=== PATIENT | female | born 1980 | race Caucasian/White ===

== ENCOUNTER 2019-11-16 20:58 | Emergency (ER) | payer SELFPAY ==
[~2019-11-16] VITALS: Ht 157.5 cm; Wt 72.6 kg
[2019-11-16 21:17] VITALS: BP 109/74
[2019-11-16 22:07] VITALS: BP 109/74
== END 2019-11-16 22:07 | disposition home or self-care (01) ==
LOC: MED 20:58
DX: R21 Rash and other nonspecific skin eruption (principal); L29.9 Pruritus, unspecified
CPT/HCPCS: 99281

== ENCOUNTER 2020-11-16 14:44 | Observation (INO) | payer MEDICAID ==
[~2020-11-16] VITALS: Ht 157.5 cm; Wt 76.2 kg
--- NOTE | 2020-11-16 15:00 | NUR ---
Patient wheelchaired to bed 02
[2020-11-16 15:01] VITALS: BP 111/69
--- NOTE | 2020-11-16 15:09 | NUR ---
[employer] RN student at bedside accompanied by RN.
--- NOTE | 2020-11-16 15:09 | NUR ---
Dr. Becerra is evaluating patient at bedside.
--- NOTE | 2020-11-16 15:10 | NUR ---
40 y/o F BIB self from home with c/c generalized weakness and palpitations x 3 days. 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 patient states triggers of stress would cause fluttering chest discomfort. Patient A&Ox4, states no chest pain at this time; however, most recent episode to sternal; 07/31, squeezing/intermittent, non-radiating pain. Patient also reports palpitations and nausea, headache, dizziness - states room spinning. Patient denies any medications prior to arrival. BP 105/67, HR 59 strong/regular, RR even/unlabored.. Patient reports symptoms came on at random. size cutter in place. Pt placed into a gown. Bed locked in lowest position, side rails x 1, call light in reach. PMH: Arrthymias x 20 years ago; prescribed beta blockers however stopped taking them after 1 year Meds/Sx: Denies NKA
[2020-11-16] MEDS ORDERED: SCOPOLAMINE 1.5 MG/72 HR PATCH TD SCH (15:20)
[2020-11-16] MEDS ORDERED: ONDANSETRON 4 MG ODT PO ONE (15:20)
--- NOTE | 2020-11-16 15:55 | NUR ---
Lab at bedside.
[2020-11-16 16:08] LABS: BASOPHILS # (AUTO) 0.1 K/uL (0.00-0.22); BASOPHILS % (AUTO) 1.6 % (0.0-2.0); EOSINOPHILS # (AUTO) 0.2 K/uL (0-0.4); EOSINOPHILS % (AUTO) 3.9 % (0.0-4.0); HEMATOCRIT 34.5 % (36-48); HEMOGLOBIN 11.4 g/dL (12.0-16.0); LYMPHOCYTES # (AUTO) 2.2 K/uL (2.5-16.5); MEAN CORPUSCULAR HEMOGLOBIN 29 pg (27-31); MEAN CORPUSCULAR HGB CONC 33 g/dL (33-37); MEAN CORPUSCULAR VOLUME 88.2 fL (80-94); MONOCYTES # (AUTO) 0.5 K/uL (0.8-1.0); MONOCYTES % (AUTO) 8.7 % (1.7-9.3); NEUTROPHILS # (AUTO) 3.2 K/uL (1.8-7.7); NEUTROPHILS % (AUTO) 50.8 % (42.2-75.2); PLATELET COUNT (AUTO) 240 K/uL (140-450); RED BLOOD CELL COUNT(AUTO) 3.91 MIL/uL (4.20-5.40); RED CELL DISTRIBUTION WIDTH 12.8 % (11.6-13.7); WHITE BLOOD COUNT (AUTO) 6.3 K/uL (4.8-10.8)
[2020-11-16 16:26] LABS: ALBUMIN 3.6 g/dL (3.4-5.0); ANION GAP 13.5 (8-16); CARBON DIOXIDE 25.6 mmol/L (21-32); CREATININE 0.7 mg/dL (0.6-1.3); MAGNESIUM 1.8 mg/dL (1.8-2.4); POTASSIUM 4.1 mmol/L (3.5-5.1); TOTAL BILIRUBIN 0.3 mg/dL (0.0-1.0)
--- NOTE | 2020-11-16 16:45 | NUR ---
RAD at bedside
--- NOTE | 2020-11-16 17:09 | NUR ---
Patient assisted to restroom via wheelchair. Patient states she felt "a little dizzy" after medication.
--- NOTE | 2020-11-16 17:11 | NUR ---
Dr. Becerra is evaluating patient at bedside.
[2020-11-16] MEDS ORDERED: ATROPINE 0.5 MG/5 ML SYR IVP ONE (17:20)
--- NOTE | 2020-11-16 17:30 | NUR ---
Dr. Becerra made aware of stable vital signs; advised to administer Atropine IVP if patient is bradycardic <50 and symptomatic. Patient made aware of criteria for Atropine use. residential monitor remains in place; HR 62 strong/regular. Bed locked in lowest position, side rails x 1, call light in reach.
[2020-11-16] MEDS ORDERED: ATROPINE 1 MG/10 ML SYR IVP ONE (17:39)
--- NOTE | 2020-11-16 17:53 | NUR ---
Patient advised of status update regarding pending admission and Covid floyd swab. Patient states she does not want to be swabbed for Covid swab due to personal reasons; at this time requesting to see if she can hold off on Wednesday to speak with her PCP and be referred to a consulting software engineer. Charge nurse and supervisor tank house made aware.
--- NOTE | 2020-11-16 17:57 | NUR ---
ice platform supervisor at bedside with patient.
--- NOTE | 2020-11-16 18:05 | NUR ---
Patient states refusal for Covid floyd swab, however, wants to stay for cardiac monitoring. Patient on telephone speaking with mother at this time. Charge nurse and Dr. Becerra made aware of situation.
--- NOTE | 2020-11-16 18:47 | NUR ---
product inspection supervisor Karlene is at bedside to assist patient perform Covid floyd swab.
--- NOTE | 2020-11-16 18:55 | NUR ---
Cliff barrientos swab collected by warehouse supervisor 3rd shift and walked to lab.
[2020-11-16] MEDS ORDERED: HYDROcodone/APAP 5/325 MG 1 TAB TAB PO PRN (19:05)
[2020-11-16] MEDS ORDERED: MORPHINE SULFATE 2 MG/ML SYR IVP PRN (19:05)
--- NOTE | 2020-11-16 19:11 | NUR ---
RECIEVED REPORT FROM OSCAR HESTER FOR CONTINUITY OF CARE.
--- NOTE | 2020-11-16 19:11 | NUR ---
Report and transfer of care endorsed to OSCAR Anthony.
--- NOTE | 2020-11-16 19:51 | NUR ---
PT TAKEN TO RESTROOM VIA WHEELCHAIR. PT REMAINS STEADY UPON STANDING.
[2020-11-16] MEDS: NACL 0.9% 1,000 ML IV SCH (20:00)
--- NOTE | 2020-11-16 20:00 | NUR ---
RECEIVED REPORT FROM ALVA MOORE DAYSHIFT NURSE OVER THE PHONE, PT IS AOX4 SKIN INTACT WITH IV SITE 22G ON LEFT HAND. SHE WILL BRING UP PT VIA W/C.
--- NOTE | 2020-11-16 20:03 | NUR ---
Patient will be admitted to care of MD ROBERT. Admited to TELEMETRY. Will go to room 105B. Belongings list completed. Report to OSCAR CALLAWAY.
--- NOTE | 2020-11-16 20:11 | NUR ---
PT TAKEN TO TELE 105B VIA RABERDEEN WITH ALVA MOORE AND TEX EMT.
[2020-11-16 20:24] LABS: BARBITURATE, URINE NEGATIVE ng/ml (NEG <=200); BENZODIAZEPINE, URINE NEGATIVE ng/mL (NEG <=200); CANNABINOID, URINE NEGATIVE ng/mL (NEG <=50); COCAINE, URINE NEGATIVE ng/mL (NEG <=300); OPIATE, URINE NEGATIVE ng/mL (NEG <=2000); PHENCYCLIDINE SCREEN,URINE NEGATIVE ng/mL (NEG <=25)
--- NOTE | 2020-11-16 20:30 | NUR ---
PT ARRIVED VIA W/C TO ROOM 105, PT AMBULATED TO BED B WITH STANDBY ASSISTANCE. SHE IS AOX4 IV SITE ON LEFT HAND 20 GUAGE INTACT WITH NORMAL SALINE BAG HUNG. PT SAID SHE HAD A HEADACHE 4/10 AND ASKED ABOUT PAIN MEDICATION , BUT SAID SHE NEVER TAKES ANY PILLS OR DRUGS AND DECLINED THE PO/PRN NORCO FOR MODERATE PAIN. V/S FOLLOWS: T 98.2 P 54 R 18 B/P 99/40 02 98%. ALL FALLS PRECAUTIONS IN PLACE. MRSA SWAB AND ADMISSION QUESTIONS ANSWERED. PT ORIENTED TO ROOM, ALL REQUESTED NEEDS ATTENDED BY STAFF.
--- NOTE | 2020-11-16 21:00 | NUR ---
ROUNDS DONE, ALL REQUESTED NEEDS ATTENDED BY STAFF. PT SAID SHE STILL FELT HEADACHE , BUT DECLINED TO TAKE OFFERED NORCO. ALL FALLS PRECAUTIONS IN PLACE.
--- NOTE | 2020-11-16 22:30 | NUR ---
ROUNDS DONE, NO C/O VOICED BY PT, ALL ORDERED PRECAUTIONS IN PLACE. NORMAL SALINE RUNNING AT 100MLS/HR ORDERED.
--- NOTE | 2020-11-17 00:30 | NUR ---
PT STANDBY ASSISTANCE TO BATHROOM; PT HR WAS 45 ON TELE , SHE HAS NO C/O VOICED, PT STANDBY ASSIST TO TOILET HAD NO C/O OF DIZZINESS. V/S FOLLOWS: T 97.9 P 51 R 18 B/P 90/42 02 99% ON ROOM AIR. PT GIVEN REQUESTED SNACK ALL FALLS PRECAUTIONS IN PLACE.
[2020-11-17 00:35] VITALS: BP 99/40
--- NOTE | 2020-11-17 02:00 | NUR ---
PT IN BED ASLEEP SHE HAS 22G IV SITE INTACT AND RUNNING NORMAL AT 100 MLS/HR. ALL ORDERED PRECAUTIONS IN PLACE.
[2020-11-17 04:00] VITALS: BP 93/65
[2020-11-17] MEDS: NACL 0.9% 1,000 ML IV SCH ×3 (05:05→22:50)
--- NOTE | 2020-11-17 05:30 | NUR ---
PT ASSISTED TO TOILET AND BACK W STAND BY ASSISTANCE. PT ABLE TO BRUSH TEETH INDEPENDENTLY. V/S FOLLOWS: T 97.5 P 61 R 20 B/P 93/65. NO C/O VOICED, DENIES PAIN, ALL FALLS PRECAUTIONS IN PLACE.
--- NOTE | 2020-11-17 06:51 | NUR ---
PATIENT HAS BEEN SCREENED AND CATEGORIZED MODERATE NUTRITION RISK. PATIENT WILL BE SEEN WITHIN 3-5 DAYS OF ADMISSION. 11/19/20-11/21/20 GENEVIEVE BONILLA MS, RDN
--- NOTE | 2020-11-17 07:20 | NUR ---
RECEIVED REPORT FROM STEEL GRINDER RN FOR CONTINUITY OF CARE. PATIENT ASLEEP IN BED IN RIGHT LATERAL POSITION. BREATHING EVEN UNLABORED ON RA. SKIN WARM AND DRY, INTACT. IV TO LEFT HAND 22G INFUSING IVF NS@ 100ML/HR. NO ACUTE DISTRESS NOTED, SAFETY MEASURES IN PLACE, WILL CONTINUE TO MONITOR.
[2020-11-17 08:00] VITALS: BP 90/40
--- NOTE | 2020-11-17 08:30 | NUR ---
REPORTED TO DR. JONES THAT PATIENT'S BP 90/40. NEW ORDER 1L NS BOLUS ORDER OBTAINED. WILL CARRY OUT.
[2020-11-17] MEDS ORDERED: NACL 0.9% 1,000 ML IV ONE (08:35)
[2020-11-17] MEDS ORDERED: ACETAMINOPHEN 325 MG TAB PO PRN (09:45)
[2020-11-17] MEDS ORDERED: DOCUSATE SODIUM 100 MG GELCAP PO PRN (09:45)
[2020-11-17] MEDS ORDERED: HYDROcodone/APAP 5/325 MG 1 TAB TAB PO PRN (09:45)
[2020-11-17] MEDS ORDERED: ONDANSETRON 4 MG/2 ML VIAL IM/IVP PRN (09:45)
[2020-11-17] MEDS ORDERED: POTASSIUM CHLORIDE 10 MEQ TABER PO PRN (09:50)
[2020-11-17] MEDS ORDERED: MAG SULF 2000 MG/WATER PREMIX 50 ML IV PRN (09:50)
--- NOTE | 2020-11-17 10:07 | NUR ---
RECHECKED PATIENT'S BP AFTER 1L OF NS BOLUS 102/46. HR 56. HANGED NEW BAG OF NS. PATIENT DENIES DIZZINESS. WILL CONTINUE TO MONITOR.
[2020-11-17 11:14] LABS: ANION GAP 5.5 (8-16); CARBON DIOXIDE 28.9 mmol/L (21-32); CREATININE 0.7 mg/dL (0.6-1.3); POTASSIUM 4.4 mmol/L (3.5-5.1)
[2020-11-17 11:16] LABS: PROTHROMBIN TIME 10.4 secs (10.8-13.4)
[2020-11-17 11:28] LABS: CHOL/HDL RATIO 3.4 (1-4.5); MAGNESIUM 1.8 mg/dL (1.8-2.4); PHOSPHORUS 2.6 mg/dL (2.5-4.9); THYROID STIMULATING HORMONE 0.82 uIU/mL (0.34-3.74)
[2020-11-17] MEDS ORDERED: MIDODRINE 5 MG TAB PO PRN ×2 (12:20→12:25)
[2020-11-17 13:46] LABS: BASOPHILS # (AUTO) 0.1 K/uL (0.00-0.22); BASOPHILS % (AUTO) 1.1 % (0.0-2.0); EOSINOPHILS # (AUTO) 0.3 K/uL (0-0.4); EOSINOPHILS % (AUTO) 5.2 % (0.0-4.0); HEMATOCRIT 32.1 % (36-48); HEMOGLOBIN 10.6 g/dL (12.0-16.0); LYMPHOCYTES # (AUTO) 1.6 K/uL (2.5-16.5); LYMPHOCYTES % (AUTO) 31.7 % (20.5-51.1); MEAN CORPUSCULAR HEMOGLOBIN 30 pg (27-31); MEAN CORPUSCULAR HGB CONC 33 g/dL (33-37); MEAN CORPUSCULAR VOLUME 89.7 fL (80-94); MONOCYTES # (AUTO) 0.5 K/uL (0.8-1.0); MONOCYTES % (AUTO) 10.1 % (1.7-9.3); NEUTROPHILS # (AUTO) 2.6 K/uL (1.8-7.7); NEUTROPHILS % (AUTO) 51.9 % (42.2-75.2); PLATELET COUNT (AUTO) 240 K/uL (140-450); RED BLOOD CELL COUNT(AUTO) 3.58 MIL/uL (4.20-5.40); RED CELL DISTRIBUTION WIDTH 13.2 % (11.6-13.7); WHITE BLOOD COUNT (AUTO) 5.1 K/uL (4.8-10.8)
[2020-11-17] MEDS ORDERED: MECLIZINE 25 MG TAB PO PRN (14:00)
--- NOTE | 2020-11-17 15:59 | NUR ---
PATIENT COMPLAINTS OF RECTAL PAIN R/T HEMORRHOIDS. INFORMED DR. JONES. NEW ORDER OBTAINED, WILL CARRY OUT.
[2020-11-17 16:00] VITALS: BP 109/65
[2020-11-17] MEDS ORDERED: SHARK OIL/PHENYLEPHRINE 60 GM TUBE TP PRN (16:00)
--- NOTE | 2020-11-17 17:24 | NUR ---
PATIENT RESTING IN BED DENIES DISCOMFORTABLE AT THIS TIME. SAFETY MEASURES IN PLACE, WILL CONTINUE TO MONITOR.
--- NOTE | 2020-11-17 19:13 | NUR ---
ENDORSED PATIENT TO AIR CONDITIONING COIL ASSEMBLER RN FOR CONTINUITY OF CARE. PATIENT IN STABLE CONDITION.
--- NOTE | 2020-11-17 19:15 | NUR ---
RECEIVED REPORT FROM BALDEMAR MOORE DAYSHIFT NURSE AT BEDSIDE FOR CONTINUITY OF CARE, PT IN STABLE CONDITION. SHE IS LYING IN BED AOX4 WITH L HAND 22G RUNNING NORMAL SALINE AT 100MLS/HR. ALL FALLS PRECAUTIONS IN PLACE.
[2020-11-17 20:00] VITALS: BP 99/44
--- NOTE | 2020-11-17 20:00 | NUR ---
PT LYING IN BED AOX4 NO C/O OF PAIN, PT REPORTS SHE IS NOT DIZZY WHEN SHE GETS UP FROM THE BED TO AMBULATE TO THE TOILET. IV SITE ON LEFT HAND INTACT AND ASYMPTOMATIC. RUNNING NORMAL SALINE AT 60 MLS/HR. V/S FOLLOWS: T 98.2 P 51 R 20 B/P 99/44 02 98% ON ROOM AIR. ALL FALLS PRECAUTIONS IN PLACE.
[2020-11-17] MEDS ORDERED: ZOLPIDEM 5 MG TAB PO PRN (21:00)
--- NOTE | 2020-11-17 21:00 | NUR ---
DISCUSSED PLAN OF CARE WITH PT INCLUDING BLOOD WORK AND TESTS PT REMINDED THAT SHE IS TO HAVE A STRESS TEST IN THE MORNING AND SHE CANNOT CONSUME ANY CAFFEINE. ECHO DONE BUT RESULTS PENDING. CT OF HEAD DONE AND IS NEGATIVE, PT VERBALIZED UNDERSTANDING OF DISCUSSION. PT DECLINED THE DUE HEPARIN SHOT FOR DVT PREVENTION. DISCUSSED PROS AND CONS OF TAKING THE ORDERED HEPARIN. FLUID BAG OF NORMAL SALINE REPLACED. ALL REQUESTS ATTENDED AND ALL ORDERED PRECAUTIONS IN PLACE.
--- NOTE | 2020-11-17 22:00 | NUR ---
PT FAMILY BROUGHT IN HER LAPTOP FROM HOME, IT WAS ADDED TO THE BELONGINGS LIST. AND BROUGHT TO PT AT BEDSIDE.
[2020-11-18] VITALS: BP 92/41
--- NOTE | 2020-11-18 | NUR ---
PT IN BED RESTING WITH EYES CLOSED NO C/O VOICED V/S FOLLOWS: T 97.3 P 78 R 18 B/P 92/41 02 98% ON ROOM AIR. ALLL FALLS PRECAUTIONS IN PLACE.
[2020-11-18 04:00] VITALS: BP 92/41
--- NOTE | 2020-11-18 04:30 | NUR ---
PT IN BED SLEEPING NO C/O VOICED BY PT V/S FOLLOWS: T 98.0 P 63 R 20 B/P 103/43 02 97% ON ROOM AIR. NO C/O VOICED ALL FALLS PRECAUTIONS IN PLACE.
[2020-11-18 05:27] LABS: BASOPHILS # (AUTO) 0.1 K/uL (0.00-0.22); BASOPHILS % (AUTO) 1.2 % (0.0-2.0); EOSINOPHILS # (AUTO) 0.4 K/uL (0-0.4); EOSINOPHILS % (AUTO) 5.8 % (0.0-4.0); HEMATOCRIT 30.5 % (36-48); HEMOGLOBIN 10.2 g/dL (12.0-16.0); LYMPHOCYTES # (AUTO) 2.7 K/uL (2.5-16.5); LYMPHOCYTES % (AUTO) 40.9 % (20.5-51.1); MEAN CORPUSCULAR HEMOGLOBIN 30 pg (27-31); MEAN CORPUSCULAR HGB CONC 33 g/dL (33-37); MEAN CORPUSCULAR VOLUME 89.4 fL (80-94); MONOCYTES # (AUTO) 0.6 K/uL (0.8-1.0); MONOCYTES % (AUTO) 9.1 % (1.7-9.3); NEUTROPHILS # (AUTO) 2.9 K/uL (1.8-7.7); PLATELET COUNT (AUTO) 227 K/uL (140-450); RED BLOOD CELL COUNT(AUTO) 3.41 MIL/uL (4.20-5.40); RED CELL DISTRIBUTION WIDTH 12.8 % (11.6-13.7); WHITE BLOOD COUNT (AUTO) 6.7 K/uL (4.8-10.8)
[2020-11-18 05:33] LABS: ANION GAP 10.3 (8-16); CARBON DIOXIDE 25.9 mmol/L (21-32); CREATININE 0.7 mg/dL (0.6-1.3); POTASSIUM 4.2 mmol/L (3.5-5.1)
[2020-11-18 05:44] LABS: MAGNESIUM 1.6 mg/dL (1.8-2.4); PHOSPHORUS 4.6 mg/dL (2.5-4.9)
[2020-11-18 06:21] LABS: FOLIC ACID 7.6 ng/mL (>3.0); T4 (THYROXINE) 7.3 ug/dL (4.5-12.0)
--- NOTE | 2020-11-18 07:16 | NUR ---
RECEIVED REPORT FROM FOUNDRY WORKER GENERAL FOR CONTINUITY OF CARE, PATIENT RESTING IN BED ON RA. BREATHING EVEN UNLABORED ON RA. ABDOMEN SOFT NON TENDER. SKIN WARM AND DRY. IV TO LEFT HAND 22G INFUSING IVF NS@ 100ML/HR, WILL REPLACE THE IV BAG. PATIENT DENIES DIZZINESS AT THIS TIME. PENDING STRESS TEST TODAY. SAFETY MEASURES IN PLACE, WILL CONTINUE TO MONITOR.
--- NOTE | 2020-11-18 07:40 | NUR ---
LATE ENTRY. IV NS COMPLETED. NEW BAG HUNG BY OSCAR MCDERMOTT.
[2020-11-18] MEDS: NACL 0.9% 1,000 ML IV SCH (07:49)
--- NOTE | 2020-11-18 07:49 | NUR ---
HANG NEW BAG OF IVF NS, PT DENIES DISCOMFORT AT THIS TIME. INFORMED PATIENT PENDING STRESS TEST, PATIENT VERBALIZED UNDERSTANDING.
[2020-11-18 08:00] VITALS: BP 102/58
[2020-11-18] MEDS ORDERED: MAG SULF 2000 MG/WATER PREMIX 50 ML IV ONE (09:25)
[2020-11-18] MEDS ORDERED: MECL-231 PO (09:52)
--- NOTE | 2020-11-18 10:01 | NUR ---
PATIENT STILL DOING STRESS TEST. WILL ADMINISTER MEDICATION ONCE PATIENT RETURN TO THE UNIT.
[2020-11-18 12:00] VITALS: BP 105/60
--- NOTE | 2020-11-18 12:34 | NUR ---
LATE ENTRY. MAGNESIUM SULFATE INFUSION ENDED AT 1234 ON 11/18/20
--- NOTE | 2020-11-18 13:25 | NUR ---
DC PLANN[age] YRS OLD FEMALE PATIENT WAS ADMITTED FROM HOME WITH A DX OF SYMPTOMATIC BRADYCARDIA .PT HAS A HX OF CARDIAC ARRHYTHMIA. CXR NO ACUTE FINDINGS CT HEAD NEGATIVE. RAPID COVID TEST NEGATIVE. SEEN BY DR VARGAS PERFORMED STRESS TEST. PER MD PT IS STABLE FOR DC . CM TO FOLLOW.
--- NOTE | 2020-11-18 14:01 | NUR ---
DISCHARGE INSTRUCTIONS PROVIDED, PATIENT VERBALIZED UNDERSTANDING. DISCHARGE PAPER SIGNED. IV REMOVED WITH INTACT CANNULA, IV SITE COVERED WITH GAUZE AND SECURED WITH TAPE, PATIENT TOLERATED WELL, NO ACUTE DISTRESS NOTED. WAITING FOR THE FAMILY TO PICK HER UP.
== END 2020-11-18 14:15 | disposition home or self-care (01) ==
LOC: MED 14:44 → UNDOADMOB 19:17 → MTU 19:17
DX: R00.1 Bradycardia, unspecified (principal); D64.9 Anemia, unspecified; E66.9 Obesity, unspecified; I49.9 Cardiac arrhythmia, unspecified; I50.30 Unspecified diastolic (congestive) heart failure; R55 Syncope and collapse; I49.1 Atrial premature depolarization; Z79.899 Other long term (current) drug therapy
CPT/HCPCS: 36415; 70450; 71045; 80048; 80053; 80061; 80305; 82150; 82607; 82728; 82746; 83036; 83540; 83690; 83735; 83880; 84100; 84134; 84436; 84443; 84484; 84702; 85025; 85045; 85610; 85730; 87081; 87426; 93005; 93017; 93307; 96361; 96365; 96366; 99291; G0378; J1644; J3475; Q0162; 99285; J0461

== ENCOUNTER 2021-03-14 15:43 | Emergency (ER) | payer MEDICAID ==
[~2021-03-14] VITALS: Ht 157.5 cm; Wt 79.4 kg
[~2021-03-14 15:43] MED LIST: MECL-231 PO
--- NOTE | 2021-03-14 15:44 | NUR ---
BIBA BLS TO ER BED 11
[2021-03-14 15:51] VITALS: BP 138/84
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
--- NOTE | 2021-03-14 16:13 | NUR ---
XRAY AT BEDSIDE
--- NOTE | 2021-03-14 16:57 | NUR ---
POLO OLSON AT BEDSIDE EXAMINING PT
--- NOTE | 2021-03-14 18:05 | NUR ---
PER ERMD PT LEFT HAND WAS FILIBERTO WRAPPED AND PMCS WAS ASSESSED BEFORE AND AFTER ALL WNL.
[2021-03-14 18:26] VITALS: BP 135/75
--- NOTE | 2021-03-14 18:26 | NUR ---
Patient discharged with v/s stable. Written and verbal after care instructions given and explained. Patient alert, oriented and verbalized understanding of instructions. Ambulatory with steady gait. All questions addressed prior to discharge. ID band removed. Patient advised to follow up with PMD. Opportunity to ask questions provided and answered.
== END 2021-03-14 18:26 | disposition home or self-care (01) ==
LOC: MED 15:43
DX: S66.911A Strain of unspecified muscle, fascia and tendon at wrist and hand level, right hand, initial encounter (principal); S00.03XA Contusion of scalp, initial encounter; M25.512 Pain in left shoulder; Z79.899 Other long term (current) drug therapy; V49.69XA Unspecified car occupant injured in collision with other motor vehicles in traffic accident, initial encounter; Y93.89 Activity, other specified; Y92.89 Other specified places as the place of occurrence of the external cause; Y99.8 Other external cause status
CPT/HCPCS: 73030; 73130; 99284; Q0092

== ENCOUNTER 2022-10-06 17:01 | Emergency (ER) | payer MEDICAID ==
--- NOTE | 2022-10-06 17:45 | NUR ---
Pt. called in ER lobby and no answer received. Called pt.'s name outside ER and no answer received. Checked bathroom and pt. was not found. Pt. left ER without triage. ER MD notified.
== END 2022-10-06 17:45 | disposition left against medical advice (07) ==
LOC: MED 17:01
DX: M79.646 Pain in unspecified finger(s) (principal); Z53.21 Procedure and treatment not carried out due to patient leaving prior to being seen by health care provider

== ENCOUNTER 2023-08-02 19:22 | Emergency (ER) | payer MEDICAID ==
[~2023-08-02] VITALS: Ht 157.5 cm; Wt 80.5 kg
[2023-08-02 19:33] VITALS: BP 101/47; PULSE 58; RESP 12; TEMP 97.6; O2SAT 100
[2023-08-02 20:13] LABS: BASOPHILS # (AUTO) 0.1 K/uL (0.00-0.22); BASOPHILS % (AUTO) 0.9 % (0.0-2.0); EOSINOPHILS # (AUTO) 0.4 K/uL (0-0.4); EOSINOPHILS % (AUTO) 4.1 % (0.0-4.0); HEMATOCRIT 34.6 % (36-48); HEMOGLOBIN 11.7 g/dL (12.0-16.0); LYMPHOCYTES # (AUTO) 2.8 K/uL (2.5-16.5); LYMPHOCYTES % (AUTO) 31.8 % (20.5-51.1); MEAN CORPUSCULAR HEMOGLOBIN 30 pg (27-31); MEAN CORPUSCULAR HGB CONC 34 g/dL (33-37); MEAN CORPUSCULAR VOLUME 88.7 fL (80-94); MONOCYTES # (AUTO) 0.6 K/uL (0.8-1.0); MONOCYTES % (AUTO) 7.3 % (1.7-9.3); NEUTROPHILS # (AUTO) 4.8 K/uL (1.8-7.7); NEUTROPHILS % (AUTO) 55.9 % (42.2-75.2); PLATELET COUNT (AUTO) 289 K/uL (140-450); RED CELL DISTRIBUTION WIDTH 12.9 % (11.6-13.7); WHITE BLOOD COUNT (AUTO) 8.7 K/uL (4.8-10.8)
[2023-08-02 20:18] VITALS: BP 101/47; PULSE 58; RESP 12; TEMP 97.6; O2SAT 99
[2023-08-02 20:20] VITALS: O2SAT 99
[2023-08-02 20:23] LABS: ANION GAP 9.5 (8-16); CALCIUM 8.9 mg/dL (8.5-10.1); CREATININE 0.7 mg/dL (0.6-1.3); POTASSIUM 4.5 mmol/L (3.5-5.1)
[2023-08-02] MEDS ORDERED: MECL-303 PO (20:46)
[2023-08-02] MEDS ORDERED: IBUP-2213 PO (20:46)
[2023-08-02] MEDS: KETOROLAC 60 MG/2 ML VIAL IM ONE (21:09)
== END 2023-08-02 21:05 | disposition home or self-care (01) ==
LOC: MED 19:22
DX: R42 Dizziness and giddiness (principal); Z79.899 Other long term (current) drug therapy
CPT/HCPCS: 36415; 80048; 81002; 81025; 82948; 85025; 93005; 99284